=== PATIENT | male | born 1970 ===

== ENCOUNTER 2019-10-27 12:00 | Emergency (ER) | payer SELFPAY ==
[~2019-10-27] VITALS: Ht 170.2 cm; Wt 70.0 kg
[2019-10-27 12:13] VITALS: BP 114/75
== END 2019-10-27 12:15 | disposition left against medical advice (07) ==
LOC: ER 12:00
DX: Z53.21 Procedure and treatment not carried out due to patient leaving prior to being seen by health care provider (principal)